=== PATIENT | female | born 1965 | race Hispanic/Latino ===

== ENCOUNTER → 2018-12-31 | Outpatient (CLI) | payer BC ==
[~2018-12-31] VITALS: Ht 154.9 cm; Wt 98.9 kg
[~2018-12-31] MED LIST: BIOT10005 PO; CINN500C PO; DULA0.75 SQ; ESTRODIOL PO; LEVO500T86 PO; METF750T46 PO; MORINGA; NITR100C9 PO; REGADENOSON 0.4 MG/5 ML PF SYG IVP SCH; UBID100C10 PO
== END | disposition home or self-care (01) ==
LOC: SHCH 08:50
PROVIDERS: ATTEND Internal Medicine Cardiovascular Disease
DX: R06.00 Dyspnea, unspecified (principal)
CPT/HCPCS: 78452; 93017; 96374; A9500 ×2; J2785

== ENCOUNTER → 2019-01-28 | Outpatient (CLI) | payer BC ==
[~2019-01-28] MED LIST changes: -REGADENOSON 0.4 MG/5 ML PF SYG IVP SCH
== END | disposition home or self-care (01) ==
LOC: SHCH 08:41
PROVIDERS: ATTEND Internal Medicine Cardiovascular Disease
DX: I51.7 Cardiomegaly (principal)
CPT/HCPCS: 93306

== ENCOUNTER → 2019-03-02 | Outpatient (CLI) | payer BC ==
[2019-03-02 13:22] LABS: BASOPHILS % (AUTO) 0.5 % (0.0-5.0); EOSINOPHILS % (AUTO) 6.1 % (0.0-8.0); HEMATOCRIT 26.2 % (36-48); LYMPHOCYTES % (AUTO) 23.4 % (21.0-51.0); MEAN CORPUSCULAR HEMOGLOBIN 20.2 pg (27.0-33.0); MEAN CORPUSCULAR HGB CONC 28.6 g/dL (32.0-36.0); MEAN CORPUSCULAR VOLUME 70.6 fL (79-99); MONOCYTES % (AUTO) 7.7 % (3.0-13.0); NEUTROPHILS % (AUTO) 61.7 % (40.0-77.0); PLATELET COUNT (AUTO) 408 K/uL (130-400); RED BLOOD CELL COUNT(AUTO) 3.71 MIL/uL (4.00-5.50); RED CELL DISTRIBUTION WIDTH 15.1 % (11.0-15.5); WHITE BLOOD COUNT (AUTO) 10.1 K/uL (4.8-10.8)
[2019-03-02 13:39] LABS: ALBUMIN 3.1 g/dL (3.5-5.0); BILIRUBIN,TOTAL 0.4 mg/dL (0.2-1.0); CREATININE 0.8 mg/dL (0.5-1.5); POTASSIUM 4.5 mmol/L (3.5-5.1); TOTAL PROTEIN, SERUM 7.8 g/dL (6.0-8.3)
== END | disposition home or self-care (01) ==
LOC: LAB 12:46
PROVIDERS: ATTEND Internal Medicine Gastroenterology
DX: R10.13 Epigastric pain (principal); R19.4 Change in bowel habit
CPT/HCPCS: 36415; 80053; 82150; 83690; 85025; 87507

== ENCOUNTER → 2021-11-01 | Outpatient (CLI) | payer BC ==
[~2021-11-01] MED LIST changes: +ACET1TAB12 PO; +AMOX-429 PO; +KETO10 PO
[2021-11-06 13:15] LABS: CREATININE 0.8 mg/dL (0.5-1.5)
== END | disposition home or self-care (01) ==
LOC: LAB 12:22
PROVIDERS: ATTEND Surgery
DX: R10.9 Unspecified abdominal pain (principal)
CPT/HCPCS: 36415; 82565

== ENCOUNTER → 2021-11-08 | Outpatient (CLI) | payer BC ==
[~2021-11-08] MED LIST changes: +IOHEXOL 350 MG/ML 100ML INFUS..BTL IV ONE
== END | disposition home or self-care (01) ==
LOC: CANPRECLI → RAH 08:41
PROVIDERS: ATTEND Surgery
DX: K76.89 Other specified diseases of liver (principal); Z85.038 Personal history of other malignant neoplasm of large intestine
CPT/HCPCS: 71270; 74178; Q9967

== ENCOUNTER → 2021-12-18 | Outpatient (CLI) | payer BC ==
[~2021-12-18] MED LIST changes: -IOHEXOL 350 MG/ML 100ML INFUS..BTL IV ONE
== END | disposition home or self-care (01) ==
LOC: SHCH 13:00
PROVIDERS: ATTEND Internal Medicine Cardiovascular Disease
DX: I87.2 Venous insufficiency (chronic) (peripheral) (principal)
CPT/HCPCS: 93970

== ENCOUNTER 2022-03-15 07:23 | Day surgery (SDC) | payer BC ==
[2022-03-13 15:05] LABS: BASOPHILS % (AUTO) 0.2 % (0.0-5.0); EOSINOPHILS % (AUTO) 2.5 % (0.0-8.0); HEMATOCRIT 37.6 % (36-48); LYMPHOCYTES % (AUTO) 24.6 % (21.0-51.0); MEAN CORPUSCULAR HEMOGLOBIN 28.7 pg (27.0-33.0); MEAN CORPUSCULAR HGB CONC 32.7 g/dL (32.0-36.0); MEAN CORPUSCULAR VOLUME 87.9 fL (79-99); MONOCYTES % (AUTO) 9.1 % (3.0-13.0); NEUTROPHILS % (AUTO) 62.9 % (40.0-77.0); PLATELET COUNT (AUTO) 247 K/uL (130-400); RED BLOOD CELL COUNT(AUTO) 4.28 MIL/uL (4.00-5.50); WHITE BLOOD COUNT (AUTO) 9.4 K/uL (4.8-10.8)
[2022-03-13 15:11] LABS: CREATININE 0.7 mg/dL (0.5-1.5); POTASSIUM 4.3 mmol/L (3.5-5.1)
[2022-03-13 15:13] LABS: PROTHROMBIN TIME 10.9 SEC (9.6-11.6)
[2022-03-13 15:14] LABS: PARTIAL THROMBOPLASTIN TIME 31.3 SEC (26.3-35.5)
[~2022-03-15 07:23] MED LIST changes: -ACET1TAB12 PO; -AMOX-429 PO; -BIOT10005 PO; +BIOT1TAB16 PO; +CALC-866 PO; -CINN500C PO; +CITRACAL PO; +COLLAGEN PO; +CRAN500T4 PO; -DULA0.75 SQ; +DULA1.5P SQ; -ESTRODIOL PO; -KETO10 PO; +LACT1CAP70 PO; -LEVO500T86 PO; -METF750T46 PO; -MORINGA; -NITR100C9 PO; +PANT40TA54 PO; +PRAS1TAB3 PO; +PREGNENOLONE PO; +SENN-107 PO; +THEA100C PO; +TURM500C4 PO; -UBID100C10 PO; +VITAMIN B12 PO; +[UNRECOGNIZED DRUG - CODE] PO
[2022-03-15] MEDS ORDERED: IOHEXOL-350 50ML VIAL IV ONE (08:37)
== END 2022-03-15 09:45 | disposition home or self-care (01) ==
LOC: DAH 07:23
PROVIDERS: ATTEND Surgery
DX: S30.1XXA Contusion of abdominal wall, initial encounter (principal); C18.2 Malignant neoplasm of ascending colon; Z79.01 Long term (current) use of anticoagulants; Z79.899 Other long term (current) drug therapy; Z90.710 Acquired absence of both cervix and uterus; Z90.49 Acquired absence of other specified parts of digestive tract; Z98.891 History of uterine scar from previous surgery; Z88.2 Allergy status to sulfonamides; Z79.84 Long term (current) use of oral hypoglycemic drugs; X58.XXXA Exposure to other specified factors, initial encounter; Y93.89 Activity, other specified; Y92.89 Other specified places as the place of occurrence of the external cause
CPT/HCPCS: 80048; 85025; 85610; 85730; 36415; 76080; 82948; 49424; A4663; Q9967; A4215; A4223; A4222; A4221

== ENCOUNTER → 2024-01-26 | Outpatient (CLI) | payer BC ==
--- NOTE | 2024-01-27 17:55 | HMCSR ---
APPROVED REPORT Left Lower Extremity Venous Study for DVT. Indications s/p Clairvein Left GSV 01/23/2024 Vein Imaging CFV (L): Normal flow, augmentation and compression. No evidence of DVT. 11.2mm 1306ms of reflux. SFJ (L): Normal flow, augmentation and compression. No evidence of DVT. FEM (L): Normal flow, augmentation and compression. No evidence of DVT. POP (L): Normal flow, augmentation and compression. No evidence of DVT. DFV (L): Normal flow, augmentation and compression. No evidence of DVT. PTV (L): Normal flow, augmentation and compression. No evidence of DVT. Peroneals (L): Normal flow, augmentation and compression. No evidence of DVT. Technologist Impression Deep veins of the left lower extremity appear patent and compressible without thrombus. Left GSV is closed from junction to mid calf. Conclusion Successful ablation of left greater saphenous vein No DVT Conclusion Successful ablation of left greater saphenous vein No DVT
== END | disposition home or self-care (01) ==
LOC: SHCH 14:30
PROVIDERS: ATTEND Internal Medicine Cardiovascular Disease
DX: Z09 Encounter for follow-up examination after completed treatment for conditions other than malignant neoplasm (principal); I87.2 Venous insufficiency (chronic) (peripheral)
CPT/HCPCS: 93971

== ENCOUNTER → 2024-02-09 | Outpatient (CLI) | payer BC ==
--- NOTE | 2024-02-10 17:11 | HMCSR ---
APPROVED REPORT Right Lower Extremity Venous Study for DVT. Indications z09; s/p Clairvein Right GSV 02/06/2024 Vein Imaging CFV (R): Normal flow, augmentation and compression. No evidence of DVT. 9.4mm 417ms of reflux. SFJ (R): Normal flow, augmentation and compression. No evidence of DVT. FEM (R): Normal flow, augmentation and compression. No evidence of DVT. POP (R): Normal flow, augmentation and compression. No evidence of DVT. DFV (R): Normal flow, augmentation and compression. No evidence of DVT. PTV (R): Normal flow, augmentation and compression. No evidence of DVT. Peroneals (R): Normal flow, augmentation and compression. No evidence of DVT. Technologist Impression Deep veins of the right lower extremity appear patent and compressible without thrombus. Right GSV is closed from junction to mid calf. Conclusion Successful ablation to right greater saphenous vein No DVT Conclusion Successful ablation to right greater saphenous vein No DVT
== END | disposition home or self-care (01) ==
LOC: SHCH 09:12
PROVIDERS: ATTEND Internal Medicine Cardiovascular Disease
DX: I87.2 Venous insufficiency (chronic) (peripheral) (principal)
CPT/HCPCS: 93971

== ENCOUNTER → 2024-04-15 | Outpatient (CLI) | payer BC | END | disposition home or self-care (01) | LOC: SHCH 13:22 | PROVIDERS: ATTEND Internal Medicine Cardiovascular Disease | DX: I20.9 Angina pectoris, unspecified (principal); R06.09 Other forms of dyspnea | CPT/HCPCS: 93306 ==

== ENCOUNTER → 2024-04-19 | Outpatient (CLI) | payer BC ==
[2024-04-19] MEDS: REGADENOSON 0.4 MG/5 ML PF SYG IVP ONE (12:01)
--- NOTE | 2024-04-23 14:22 | HMCSR ---
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 Informerd consent was witnessed Nae Calderon RN First, low dose rest was performed then high dose stress. RESTING DATA: The resting ekg shows: NSR Rest SPECT myocardial perfusion imaging was performed in supine position 68 minutes following the int ravenous injection of 10.9 mCi of Tc-99 Sestamibi. Time of rest injection: 08:28: Date: 04/19/2024 Time of rest imagin:36: Date: 04/19/2024 PHARMACOLOGIC STRESS: Pharmacologic stress test was performed by injecting regadenoson 0.4 mg IV push followed by the intra venous injection of 32.5 mCi of Tc-99 Sestamibi. Time of stress injection: 10:22: Date: 04/19/2024 Time of stress imagin:44: Date: 04/19/2024 Heart Rate at time of stress injection: 76 bpm. Gated Stress SPECT was performed 82 minutes after stress injection. The images were gated to evaluate regional wall motion and calculate left ventricular ejection fracti on. STRESS DETAILS Reason for Termination: Infusion complete Stress Symptoms: Dyspnea, Dizziness, Nausea Max HR Achieved: 90 bpm % of APMHR Achieved: 56 Max Blood Pressure: 165/102 mmHg Stress ECG: NSR Study quality was good. Lung uptake was Normal. Artifact: No artifact LEFT VENTRICLE Size: The left ventricular size is normal. Systolic Function:The left ventricular systolic function is normal. Wall Motion: Cannot assess regional wall motion abnormalities. The left ventricular ejection fraction was calculated to be 78%.TID = . LV PERFUSION The rest and stress images show normal perfusion. IMPRESSION Normal pharmacologic nuclear stress test. Global LV Function: Normal Stress ECG Summary: Normal LV Perfusion Summary: Normal Conclusion Normal pharmacologic nuclear stress test. Global LV Function: Normal Stress ECG Summary: Normal LV Perfusion Summary: Normal
== END | disposition home or self-care (01) ==
LOC: SHCH 07:51
PROVIDERS: ATTEND Internal Medicine Cardiovascular Disease
DX: I20.9 Angina pectoris, unspecified (principal); R06.00 Dyspnea, unspecified; R42 Dizziness and giddiness
CPT/HCPCS: 78452; 93017; J2785; A9500 ×2